=== PATIENT | male | born 1940 | race Caucasian/White ===

== ENCOUNTER → 2016-08-22 | Outpatient (REF) | payer MEDICARE ==
[2016-08-22 10:22] LABS: ANION GAP 17.6 MEQ/L (3-15)
== END ==
LOC: LAB 09:33
PROVIDERS: ATTEND Family Medicine
DX: I10 Essential (primary) hypertension (principal); E11.9 Type 2 diabetes mellitus without complications
CPT/HCPCS: 80048; 83036